=== PATIENT | female | born 1955 | race Caucasian/White ===

== ENCOUNTER 2021-03-28 12:34 | Emergency (ER) | payer MEDICARE, SELFPAY ==
--- NOTE | ~2021-03-28 | XR_ITS ---
EXAMINATION: XR knee RT 3V DATE: 03/28/2021 13:10 INDICATION: Right knee pain TECHNIQUE: Three views of the right knee were obtained. COMPARISON: None. FINDINGS: There is an anterior soft tissue laceration overlying the proximal tibia. Alignment is norm al. No fracture or osteochondral lesion. There is mild tricompartmental osteoarthritis characterized by tiny marginal osteophytes. No joint effusion/synovitis. IMPRESSION: 1. No acute osseous abnormality. Reviewed, dictated and finalized at location A.
[2021-03-28 12:50] VITALS: BP 135/87; PULSE 73; RESP 18; TEMP 37.1; O2SAT 100
[2021-03-28] MEDS: TETANUS,DIPHTHERIA,AC PERTUSSIS ADULT (0.5 ML) BOOSTRIX IM (13:23)
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
[2021-03-28] MEDS: IBUPROFEN 400 MG TABLET 800 MG PO (13:45)
[2021-03-28] MEDS: LIDOCAINE HCL 1% LOCAL INJ 20 ML VIAL INFILTRATE (14:26)
== END 2021-03-28 14:30 | disposition home or self-care (01) ==
PROVIDERS: Emergency Provider Nurse Practitioner Adult Health; PCP Internal Medicine
DX: S81.012A Laceration without foreign body, left knee, initial encounter (principal); V18.4XXA Pedal cycle driver injured in noncollision transport accident in traffic accident, initial encounter; Z23 Encounter for immunization
CPT/HCPCS: 12001; 73562; 90471; 90715; 99213; A9270; G0463